=== PATIENT | male | born 1955 | race American Indian/Alaskan Native ===

== ENCOUNTER 2019-02-10 09:18 | Outpatient (CLI) | payer MEDICAID ==
--- NOTE | 2019-02-10 14:04 | Nuclear Medicine Report ---
BONE SCAN: History: Malignant neoplasm of prostate gland. After injection of isotope, gamma camera imaging of the bony system was done. There is a normal uptake of isotope throughout the bony structures without areas of significantly increased or decreased uptake. Mild degenerative uptake is noted in the shoulders, elbows, wrists and spine. No focal areas of abnormal radiotracer activity is identified to suggest metastatic disease. Normal uptake in the urinary system is seen. IMPRESSION: Negative bone scan for metastatic disease. Degenerative changes.
== END 2019-02-10 09:19 | disposition home or self-care (01) ==
LOC: NM 09:18
PROVIDERS: ATTEND Urology
DX: C61 Malignant neoplasm of prostate (principal); M19.012 Primary osteoarthritis, left shoulder; M19.011 Primary osteoarthritis, right shoulder; M19.022 Primary osteoarthritis, left elbow; M19.021 Primary osteoarthritis, right elbow; M19.032 Primary osteoarthritis, left wrist; M19.031 Primary osteoarthritis, right wrist; M47.819 Spondylosis without myelopathy or radiculopathy, site unspecified; I10 Essential (primary) hypertension
CPT/HCPCS: 78306; A9503

== ENCOUNTER 2019-03-14 11:12 | Outpatient (CLI) | payer MEDICAID ==
[2019-03-14 12:32] LABS: Hematocrit 45.2 % (35.5-45.6); Hemoglobin 14.6 gm/dl (11.8-15.2); Mean Corpuscular HGB Conc 32 % (32-34); Mean Corpuscular Volume 88 fl (84-94); Platelet Count 315 K/mm3 (140-440); Red Blood Count 5.16 M/mm3 (3.65-5.03); Red Cell Distribution Width 15.1 % (13.2-15.2)
[2019-03-14 13:57] LABS: Alanine Aminotransferase 16 units/L (7-56); Albumin 4.6 g/dL (3.9-5); BUN/Creatinine Ratio 27; Blood Urea Nitrogen 35 mg/dL (9-20); Hemolysis Index 5
[2019-03-14 15:45] LABS: Chol/HDL Ratio 3.25 %; HDL Cholesterol 54 mg/dL (40-59); LDL Cholesterol,Direct 113 mg/dL (50-130)
== END 2019-03-14 11:13 | disposition home or self-care (01) ==
LOC: LAB 11:12
PROVIDERS: ATTEND Internal Medicine
DX: Z00.01 Encounter for general adult medical examination with abnormal findings (principal); Z13.1 Encounter for screening for diabetes mellitus; Z13.220 Encounter for screening for lipoid disorders; I10 Essential (primary) hypertension
CPT/HCPCS: 36415; 80053; 80061; 82607; 83036; 84443; 85027